=== PATIENT | female | born 1980 | race Two or more races ===

== ENCOUNTER 2016-10-28 23:08 | Emergency (ER) | payer BC ==
[2016-10-29] MEDS ORDERED: DIPHENHYDRAMINE HCL 50 MG/ML VIAL IV ONE (01:17)
[2016-10-29] MEDS ORDERED: NORMAL SALINE 1000 ML 1,000 ML IV ONE (01:17)
[2016-10-29] MEDS ORDERED: PROCHLORPERAZINE EDISYLATE INJ 10 MG/2 ML VIAL IV ONE (01:17)
[2016-10-29] MEDS ORDERED: KETOROLAC TROMETHAMINE INJ/PF 30 MG/1 ML SDV IV ONE (01:17)
--- NOTE | 2016-10-29 01:19 | ER Document Report ---
ED Medical Screen (RME) - General Stated Complaint: MIGRAINE Time seen by provider: 01:10 Notes: 36 year old, migraine x3 days, hx of migraines, takes OTC medications for them. Also nauseated x3 days straight. Unsure if she is . Denies fever, head injury. + phonophobia and photophobia. TRAVEL OUTSIDE OF THE [place] IN LAST 30 DAYS: No - Related Data Allergies/Adverse Reactions: metoclopramide [From Reglan] Adverse Reaction (Verified 10/29/16 01:16) Past Medical History - Past Medical History Cardiac Medical History: Denies: Hx Coronary Artery Disease Neurological Medical History: Reports: Hx Migraine. Denies: Hx Cerebrovascular Accident, Hx Seizures Psychiatric Medical History: Reports: Hx Attention Deficit Hyperactivity Disorder, Hx Depression Past Surgical History: Reports: Hx Abdominal Surgery - gastric bypass - Immunizations Hx Diphtheria, Pertussis, Tetanus Vaccination: Yes Physical Exam - Vital signs Vitals: Temp Pulse Resp BP Pulse Ox 98.0 F 66 20 123/82 100 10/29/16 00:20 10/29/16 00:20 10/29/16 00:20 10/29/16 00:20 10/29/16 00:20 - General General appearance: Anxious In distress: Mild - patient appears uncomfortable Course - Vital Signs Vital signs: Temp Pulse Resp BP Pulse Ox 98.0 F 66 20 123/82 100 10/29/16 00:20 10/29/16 00:20 10/29/16 00:20 10/29/16 00:20 10/29/16 00:20
--- NOTE | 2016-10-29 04:00 | ER Document Report ---
ED Headache - General Mode of Arrival: Ambulatory Information source: Patient TRAVEL OUTSIDE OF THE [place] IN LAST 30 DAYS: No - HPI Patient complains to provider of: "Migraine" Patient reports: Frequent migraines Onset: Other - 3 days ago Associated symptoms: Other - see above - General Chief Complaint: Headache >24 hrs old Stated Complaint: MIGRAINE Notes: 36 year old female with history of migraines presents to the ED complaining of right sided headaches that started 3 days ago. Patient states that the migraines have been more constant for the past 3-4 months, but they are otherwise the patient's typical migraines. Patient states that she is better upon examination. Patient states that she has tried Topomax for 3 months, but states that it didn't work. Patient is not on any medication for his migraines. Patient is additionally complaining of galactorrhea. (HEMANT MAYER) - Related Data Allergies/Adverse Reactions: metoclopramide [From Reglan] Adverse Reaction (Verified 10/29/16 01:16) Past Medical History - General Information source: Patient - Social History Smoking Status: Never Smoker Chew tobacco use (# tins/day): No Frequency of alcohol use: Occasional Drug Abuse: None Family History: Reviewed & Not Pertinent Patient has suicidal ideation: No Patient has homicidal ideation: No Neurological Medical History: Reports: Hx Migraine Psychiatric Medical History: Reports: Hx Attention Deficit Hyperactivity Disorder, Hx Depression Past Surgical History: Reports: Hx Abdominal Surgery - gastric bypass - Immunizations Hx Diphtheria, Pertussis, Tetanus Vaccination: Yes Review of Systems - Review of Systems Constitutional: No symptoms reported EENT: No symptoms reported Cardiovascular: No symptoms reported Respiratory: No symptoms reported Gastrointestinal: No symptoms reported Genitourinary: No symptoms reported Female Genitourinary: No symptoms reported Musculoskeletal: No symptoms reported Skin: No symptoms reported Hematologic/Lymphatic: No symptoms reported Neurological/Psychological: See HPI, Headaches -: Yes All other systems reviewed and negative Physical Exam - Vital signs Interpretation: Normal - General General appearance: Alert In distress: None - HEENT Head: Normocephalic, Atraumatic Eyes: Normal Extraocular movements intact: Yes Pupils: PERRL - Respiratory Respiratory status: No respiratory distress Breath sounds: Normal - Cardiovascular Rhythm: Regular Heart sounds: Normal auscultation - Abdominal Inspection: Normal - Back Back: Normal - Extremities General upper extremity: Normal inspection, Normal ROM General lower extremity: Normal inspection, Normal ROM - Neurological Neuro grossly intact: Yes Cognition: Normal Orientation: AAOx4 Justice Coma Scale Eye Opening: Spontaneous Soo Coma Scale Verbal: Oriented Justice Coma Scale Motor: Obeys Commands Justice Coma Scale Total: 15 Speech: Normal - Psychological Associated symptoms: Normal affect, Normal mood - Skin Skin Temperature: Warm Skin Moisture: Dry Skin Color: Normal - Vital signs Vitals: Temp Pulse Resp BP Pulse Ox 98.0 F 66 20 123/82 100 10/29/16 00:20 10/29/16 00:20 10/29/16 00:20 10/29/16 00:20 10/29/16 00:20 (HEMANT MAYER) (RAVINDER RUSSELL) Course - Re-evaluation Re-evalutation: 10/29/16 04:44 Patient improved after medications and fluids. Patient is complaining of galactorrhea as well. Patient has a primary doctor that she can follow-up with. Recommended that she have outpatient MRI. Patient with no neurovascular deficits at this time. Vitals are stable. Understands agrees with plan. Stable for discharge. (RAVINDER RUSSELL) - Vital Signs Vital signs: Temp Pulse Resp BP Pulse Ox 98.2 F 74 14 116/67 100 10/29/16 04:33 10/29/16 04:33 10/29/16 04:33 10/29/16 04:33 10/29/16 04:33 (HEMANT MAYER) (RAVINDER RUSSELL) Discharge - Discharge Clinical Impression: Galactorrhea Headache Qualifiers: Headache type: unspecified Headache chronicity pattern: acute headache Intractability: not intractable Qualified Code(s): R51 - Headache Condition: Stable Disposition: HOME, SELF-CARE Instructions: Headache ([facility]) Additional Instructions: Please discuss her headaches and milk production with your primary care doctor. Your symptoms are concerning for a pituitary adenoma and you may need a follow -up MRI. Prescriptions: Ondansetron [Zofran Odt 4 mg Tablet] 1 - 2 tab PO Q4H PRN #15 tab.rapdis PRN Reason: For Nausea/Vomiting Prochlorperazine Maleate [Compazine 10 mg Tablet] 10 mg PO ASDIR PRN #10 tablet PRN Reason: Forms: Return to Work Referrals: AILYN HAYES PA-C [Primary Care Provider] - Follow up in 3-5 days Scribe Attestation: 10/29/16 04:46 I personally performed the services described in the documentation, reviewed and edited the documentation which was dictated to the scribe in my presence, and it accurately records my words and actions. (RAVINDER RUSSELL
[2016-10-29 04:35] VITALS: BP 116/67
== END 2016-10-29 04:35 | disposition home or self-care (01) ==
LOC: ER 23:08
DX: O92.6 Galactorrhea (principal); R51 Headache; Z79.899 Other long term (current) drug therapy
CPT/HCPCS: 99283; 96361; 96374; 96375; 81025; J1200; J1885; J0780; J7030

== ENCOUNTER 2018-11-30 23:49 | Emergency (ER) | payer BC ==
--- NOTE | 2018-12-01 00:09 | ER Document Report ---
ED General - General Chief Complaint: Overdose Stated Complaint: POSSIBLE OVERDOSE Time Seen by Provider: 12/01/18 00:00 Primary Care Provider: AILYN HAYES PA-C [NO LOCAL MD] - Follow up as needed Notes: Patient is a 38-year-old female who presents with complaint of vaginal overdose. She reports taking 10 pills of Xanax 0.5 mg, 10 pills of Valium 5 mg, 10 pills of Wellbutrin 150 mg, and 10 pills of Lexapro 10 mg. She is currently very sleepy with very slurred speech but able to answer some questions. She says she is depressed. She admits to trying to hurt herself. She wrote DNR on her left forearm. 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 She says that she has not been will pass her boards and she is depressed. She says that she went to medical school in [facility] and that she is originally from [place]. She denies being nauseous vesi cular stomach at this time. She denies any pain. She denies take any other medications other than what is mentioned above. I cannot understand her when I asked her if she has had alcohol or not. It is difficult to tell if she says yes or no. TRAVEL OUTSIDE OF THE [place] IN LAST 30 DAYS: No - Related Data Allergies/Adverse Reactions: metoclopramide [From Reglan] Adverse Reaction (Verified 12/01/18 07:38) Past Medical History - Social History Smoking Status: Unknown if Ever Smoked Frequency of alcohol use: unknown Drug Abuse: Other - unknown Family History: Reviewed & Not Pertinent - Past Medical History Cardiac Medical History: Denies: Hx Coronary Artery Disease Neurological Medical History: Reports: Hx Migraine. Denies: Hx Cerebrovascular Accident, Hx Seizures Renal/ Medical History: Denies: Hx Peritoneal Dialysis Psychiatric Medical History: Reports: Hx Attention Deficit Hyperactivity Disorder, Hx Depression Past Surgical History: Reports: Hx Abdominal Surgery - gastric bypass - Immunizations Hx Diphtheria, Pertussis, Tetanus Vaccination: Yes Review of Systems - Review of Systems -: Yes ROS unobtainable due to patient's medical condition - Patient is very somnolent sedated from medication she took. Physical Exam - Vital signs Vitals: Temp Pulse Resp BP Pulse Ox 97.9 F 85 18 117/88 H 98 12/01/18 00:02 12/01/18 00:02 12/01/18 00:02 12/01/18 00:02 12/01/18 00:02 - Notes Notes: General Appearance: Well nourished, very somnolent, cooperative, no acute distress, no obvious discomfort. Does not keep eyes open. When she talks her words are very mumbled and difficult to understand. Vitals: reviewed, See vital signs table. Head: no swelling or tenderness to the head Eyes: PERRL, EOMI, Conjuctiva clear Mouth: No decreasd moisture Neck: Supple, no neck tenderness, No thyromegaly Lungs: No wheezing, No rales, No rhonci, No accessory muscle use, good air exchange bilaterally. Heart: Normal rate, Regular rythm, No murmur, no rub Abdomen: Normal BS, soft, No rigidity, No abdominal tenderness, No guarding, no rebound, no abdominal masses, no organomegaly Extremities: , good pulses in all extremities, no swelling or tenderness in the extremities, no edema. Skin: warm, dry, appropriate color, no rash Neuro: Speech is very slurred. Symmetric facial movement. Patient is very so mnolent. She answers some questions but is difficult to determine what she is saying at times. After have her repeat her answers multiple times. Gait not tested as the patient is unlikely be able to stand on her own at this time due to sedation from the medications she took. Course - Re-evaluation Re-evalutation: 12/01/18 05:36 Patient still somnolent however she has been improving. I suspect it will probably be a little while longer before she is fully medically stable for mental health evaluation and placement. Patient will be continued on the monitor until cleared for mental health evaluation. - Vital Signs Vital signs: Temp Pulse Resp BP Pulse Ox 98.5 F 78 16 121/71 99 12/02/18 20:11 12/02/18 20:11 12/02/18 20:11 12/02/18 20:11 12/02/18 20:11 - Laboratory Result Diagrams: 12/01/18 00:24 12/01/18 00:24 Laboratory results interpreted by me: 12/01/18 12/01/18 00:24 10:07 Chloride 108 H Urine Ketones TRACE H Salicylates < 1.0 L Acetaminophen < 10 L - EKG Interpretation by Me Additional EKG results interpreted by me: 12/01/18 00:19 EKG is reviewed and interpreted by me. EKG shows sinus rhythm with a rate of [address] segment elevation or depression. No ischemic T wave inversions. CO interval, QRS duration, QT intervals are within normal range. No old EKG available for comparison. Discharge - Discharge Clinical Impression: Suicidal behavior Qualifiers: Attempted self-injury: with attempted self-injury Qualified Code(s): T14.91XA - Suicide attempt, initial encounter Overdose Qualifiers: Encounter type: initial encounter Injury intent: intentional self-harm Qualified Code(s): T50.902A - Poisoning by unspecified drugs, medicaments and biological substances, intentional self-harm, initial encounter Condition: Stable Disposition: PSYCH HOSP/UNIT Referrals: AILYN HAYES PA-C [NO LOCAL MD] - Follow up as needed
[2018-12-01 00:36] LABS: ABSOLUTE MONOCYTES (AUTO) 0.8 10^3/uL (0.1-1.4); ABSOLUTE NEUT (AUTO) 3.9 10^3/uL (1.7-8.2); BASOPHILS % (AUTO) 0.3 % (0-2); EOSINOPHILS % (AUTO) 0.6 % (0-6); HEMATOCRIT 41.7 % (36.0-47.0); HEMOGLOBIN 14.2 g/dL (12.0-15.5); LYMPHOCYTES % (AUTO) 30.1 % (13-45); MEAN CORPUSCULAR HEMOGLOBIN 30.2 pg (27.0-33.4); MEAN CORPUSCULAR VOLUME 89 fl (80-97); MONOCYTES % (AUTO) 11.4 % (3-13); PLATELET COUNT 233 10^3/uL (150-450); RED CELL DISTRIBUTION WIDTH 13.3 % (11.5-14.0); SEGMENTED NEUTROPHILS % (AUTO) 57.6 % (42-78); TOTAL CELLS COUNTED % (AUTO) 100 %; WHITE BLOOD COUNT 6.7 10^3/uL (4.0-10.5)
[2018-12-01 00:58] LABS: ALANINE AMINOTRANSFERASE 21 U/L (9-52); ALBUMIN 4.5 g/dL (3.5-5.0); ALCOHOL 110 mg/dL (NONE DETECTED); ALKALINE PHOSPHATASE 61 U/L (38-126); ANION GAP 11 (5-19); ASPARTATE AMINO TRANSFERASE 22 U/L (14-36); BILIRUBIN,DIRECT 0.1 mg/dL (0.0-0.4); BILIRUBIN,TOTAL 0.3 mg/dL (0.2-1.3); BLOOD UREA NITROGEN 9 mg/dL (7-20); CALCIUM 9.2 mg/dL (8.4-10.2); CARBON DIOXIDE 25 mmol/L (22-30); CHLORIDE 108 mmol/L (98-107); GLUCOSE 80 mg/dL (75-110); SODIUM 144.1 mmol/L (137-145)
[2018-12-01 01:04] LABS: ACETAMINOPHEN < 10 ug/mL (10-30); SALICYLATE < 1.0 mg/dL (2.0-20.0)
--- NOTE | 2018-12-01 08:58 | EKG REPORT ---
SEVERITY:- OTHERWISE NORMAL ECG - SINUS RHYTHM BORDERLINE LEFT AXIS DEVIATION : Confirmed by: Demetria Johnson MD 01-Dec-2018 08:58:19
--- NOTE | 2018-12-01 09:18 | ER Document Report ---
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 She will DNR no form. Psychiatry evaluation is pending. Labs as recorded with a blood alcohol level that is elevated. 12/01/18 18:02 I have made multiple re-evaluations of the patient who is initially somnolent and now is sitting up and oriented to person, place, time, and previous activities. Patient denies currently any pain. Patient was having some urinary retention during the course of this emergency department stay and a Palomo catheter was placed. I most likely would believe this was secondary to medications causing anticholinergic-like effect. Vital signs are stable. Patient currently has no focal neurological deficits, no tenderness to palpation of the abdomen. I believe that the patient will be able to be assessed by the psychiatry/psychology team tomorrow morning.
[2018-12-01] MEDS ORDERED: NORMAL SALINE 1000 ML 1,000 ML IV ONE (09:39)
[2018-12-01 10:22] LABS: APPEARANCE,URINE CLEAR; BILIRUBIN,URINE NEGATIVE (NEGATIVE); COLOR,URINE YELLOW; GLUCOSE, URINE NEGATIVE (NEGATIVE); KETONES,URINE TRACE mg/dL (NEGATIVE); LEUKOCYTE ESTERASE,URINE NEGATIVE (NEGATIVE); NITRITE,URINE NEGATIVE (NEGATIVE); PROTEIN,URINE NEGATIVE (NEGATIVE); URINE SPECIFIC GRAVITY 1.015; UROBILINOGEN,URINE NEGATIVE mg/dL (<2.0)
[2018-12-01 10:40] LABS: URINE AMPHETAMINES SCREEN UNCONFIRMED POSITIVE; URINE BARBITURATES SCREEN NEGATIVE; URINE BENZODIAZEPINES SCREEN UNCONFIRMED POSITIVE; URINE COCAINE SCREEN NEGATIVE; URINE MARIJUANA (THC) SCREEN NEGATIVE; URINE METHADONE SCREEN NEGATIVE; URINE PHENCYCLIDINE SCREEN NEGATIVE
--- NOTE | 2018-12-01 10:58 | PSYCHOLOGICAL NOTE ---
Psych Note - Psych Note Date seen by psych provider: 12/01/18 Time seen by psych provider: 07:25 Psych Note: Reason for Consult: Intentional overdose Patient is a 38-year-old female who presents with complaint of intentional overdose. She reports taking 10 pills of Xanax 0.5 mg, 10 pills of Valium 5 mg, 10 pills of Wellbutrin 150 mg, and 10 pills of Lexapro 10 mg. Patient currently is unable to fully engage with evaluation. She is currently still under the influence and incoherent. Patient is recommended for full IVC as patient currently will not be medically cleared for at least 24 hours. Evaluation will occur later when patient is alert and orientated.
[2018-12-01] MEDS ORDERED: ACETAMINOPHEN 325 MG TABLET PO ONE (23:05)
[2018-12-02] MEDS ORDERED: ACETAMINOPHEN 325 MG TABLET PO ONE ×2 (06:53→23:54)
--- NOTE | 2018-12-02 08:43 | EKG REPORT ---
SEVERITY:- NORMAL ECG - SINUS RHYTHM : Confirmed by: Demteria Johnson MD 02-Dec-2018 08:42:05
--- NOTE | 2018-12-02 09:29 | ER Document Report ---
Doctor's Note Notes: 12/02/18 09:28 38-year-old female who overdosed intentionally with multiple medications including alcohol. She was having some urinary retention yesterday which has improved. Patient is oriented x4 with no focal neurological deficits. Awaiting final disposition/psychiatry/psychology plan. 12/02/18 10:09 We will DC the Palomo catheter and attempt a voiding trial. 12/02/18 12:40 Patient has passed the voiding trial. She is cleared medically.
--- NOTE | 2018-12-02 10:56 | PSYCHOLOGICAL NOTE ---
Psych Note - Psych Note Date seen by psych provider: 12/02/18 Time seen by psych provider: 07:40 Psych Note: Reason for Consult: Intentional overdose Patient is a 38-year-old female who presents with intentional overdose. She reports taking 10 pills of Xanax 0.5 mg, 10 pills of Valium 5 mg, 10 pills of Wellbutrin 150 mg, and 10 pills of Lexapro 10 mg. Patient discloses that she was drinking and took the medications. 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 I work to survive and do not have time to study....I'm tired of everyone treating me like a fucCswitch idiot just because I have an accent." When asked if patient was glad she was able to be saved she does not respond or make eye contact; clinician notes patient arrived with the words DNR written on her forearm. When asked if she still wanted she to , she became tearful and avoided answering and stated "I am still groggy." Patient is alert and orientated to person, place, time and circumstance. Mood is dysphoric with tearful affect. Patient presented after intentional overdose. Patient denies homicidal ideation. Delusions are absent behaviors congruent with an intact reality based presentation i.e. organized and linear thought process. Eye contact is fair. Conversational speech is within normal rate, tone and prosody. Intellectual abilities appear to be average to high average range. Attention and concentration are poor. insight, judgment, impulse control are poor. No medication recommendations at this time 311 (F32.9) unspecified depressive disorder Impression\\plan: Patient is recommended to continue under involuntary commitment. Patient confirms intentional overdose. Patient wrote DNR on her arm. Patient continues to be very dysphoric with tearful affect. While patient does start to open up to clinician, she is still very guarded. At this time there is significant concern the patient is still actively suicidal. Patient be reevaluated. Dr. Jarquin was consulted and care management this patient; attending physicians agreement with recommendations and disposition.
[2018-12-03 08:32] VITALS: BP 121/73
== END 2018-12-03 08:36 ==
LOC: ER 23:49
DX: T42.4X2A Poisoning by benzodiazepines, intentional self-harm, initial encounter (principal); T43.292A Poisoning by other antidepressants, intentional self-harm, initial encounter; T43.222A Poisoning by selective serotonin reuptake inhibitors, intentional self-harm, initial encounter; T51.92XA Toxic effect of unspecified alcohol, intentional self-harm, initial encounter; R33.9 Retention of urine, unspecified; F32.9 Major depressive disorder, single episode, unspecified; Z55.2 Failed school examinations
CPT/HCPCS: 93005; 99285; 51701; 51702; 36415; 80307 ×4; 84703; 85025; 80053; 81001; 93010; J7030